=== PATIENT | male | born 1950 | race African-American/Black ===

== ENCOUNTER → 2017-08-22 | Day surgery (SDC) | payer MEDICARE, OTHER ==
[~2017-08-22] MED LIST: LIDOCAINE 2% JELLY 5 ML TUBE ONE
== END ==
LOC: END 08:04
PROVIDERS: ATTEND Internal Medicine Gastroenterology
PROC: 4A0B7BZ Measurement of Gastrointestinal Pressure, Via Natural or Artificial Opening (ICD-10-PCS; principal; 2017-08-22)
DX: R13.10 Dysphagia, unspecified (principal)
CPT/HCPCS: 91010